=== PATIENT | male | born 1985 | race Caucasian/White ===

== ENCOUNTER 2018-06-08 12:36 | Emergency (ER) | payer OTHER | END 2018-06-08 17:25 | disposition home or self-care (01) | LOC: FTE 12:36 | DX: J40 Bronchitis, not specified as acute or chronic (principal); F17.210 Nicotine dependence, cigarettes, uncomplicated; R07.9 Chest pain, unspecified | CPT/HCPCS: 71045; 93005; 99284-25 ==

== ENCOUNTER 2018-07-18 18:38 | Emergency (ER) | payer OTHER | END 2018-07-18 19:56 | disposition home or self-care (01) | LOC: FTE 18:38 | DX: R05 Cough (principal) | CPT/HCPCS: 99283; Z7502 ==